=== PATIENT | female | born 1975 | race Caucasian/White ===

== ENCOUNTER 2023-11-14 14:12 | Inpatient (IN) | payer MEDICAID, OTHER ==
[~2023-11-14] VITALS: Ht 160 cm; Wt 52.2 kg
[2023-11-14 14:53] VITALS: BP 111/58; PULSE 109; RESP 20; TEMP 98.1; O2SAT 96
[2023-11-14 16:46] LABS: BASOPHILS % (AUTO) 0.4 % (0.0-2.0); EOSINOPHILS # (AUTO) 0.6 K/uL (0-0.4); EOSINOPHILS % (AUTO) 4.8 % (0.0-4.0); HEMOGLOBIN 12.1 g/dL (12.0-16.0); LYMPHOCYTES # (AUTO) 1.2 K/uL (2.5-16.5); LYMPHOCYTES % (AUTO) 9.5 % (20.5-51.1); MEAN CORPUSCULAR HEMOGLOBIN 28 pg (27-31); MEAN CORPUSCULAR HGB CONC 34 g/dL (33-37); MEAN CORPUSCULAR VOLUME 81.5 fL (80-94); MONOCYTES # (AUTO) 1.2 K/uL (0.8-1.0); MONOCYTES % (AUTO) 9.3 % (1.7-9.3); NEUTROPHILS # (AUTO) 9.8 K/uL (1.8-7.7); PLATELET COUNT (AUTO) 514 K/uL (140-450); RED BLOOD CELL COUNT(AUTO) 4.42 MIL/uL (4.20-5.40); WHITE BLOOD COUNT (AUTO) 12.9 K/uL (4.8-10.8)
[2023-11-14 17:06] LABS: ANION GAP 13.4 (8-16); CALCIUM 9.5 mg/dL (8.5-10.1); CARBON DIOXIDE 28.4 mmol/L (21-32); CREATININE 0.8 mg/dL (0.6-1.3); POTASSIUM 3.8 mmol/L (3.5-5.1)
[2023-11-14 17:52] LABS: LACTIC ACID 0.9 mmol/L (0.4-2.0)
[2023-11-14] MEDS: NACL 0.9% 2,000 ML IV ONE (18:48)
[2023-11-14] MEDS ORDERED: ONDANSETRON 4 MG/2 ML VIAL IVP PRN (19:00)
[2023-11-14] MEDS ORDERED: MORPHINE SULFATE 4 MG/ML SYR IVP PRN (19:00)
[2023-11-14] MEDS ORDERED: HYDROcodone/APAP 5/325 MG 1 TAB TAB PO PRN (19:00)
[2023-11-14] MEDS ORDERED: POTASSIUM CHLORIDE 10 MEQ TABER PO PRN (19:00)
[2023-11-14] MEDS ORDERED: KCL 20 MEQ IN 100 mL PREMIX 200 ML IV PRN (19:00)
[2023-11-14] MEDS ORDERED: MAG SULF 2000 MG/WATER PREMIX 50 ML IV PRN (19:00)
[2023-11-14] MEDS ORDERED: MAGNESIUM OXIDE 400 MG TAB PO PRN (19:00)
[2023-11-14] MEDS: ALBUTEROL SULFATE/IPRATROPIU 3 ML SOL IH SCH (19:46)
[2023-11-14 20:15] VITALS: PULSE 109; RESP 20; O2SAT 96
[2023-11-14] MEDS: IPRATROPIUM 0.02% 0.5 MG/2.5 ML NEBU INH ONE (20:17)
[2023-11-14] MEDS: ALBUTEROL 0.083% 2.5 MG/3 ML NEBU INH ONE (20:17)
[2023-11-14 20:45] VITALS: O2SAT 99
[2023-11-14 20:47] VITALS: PULSE 109; RESP 20; O2SAT 99
[2023-11-14 22:05] VITALS: PULSE 71; RESP 18; O2SAT 98
[2023-11-14] MEDS: AZITHROMYCIN 500 MG in DEXTROSE 5% 250 ML IV SCH (22:58)
[2023-11-14] MEDS: AZITHROMYCIN 500 MG INJ VIAL IV ONE (22:59)
[2023-11-15] VITALS (10 sets, daily range): BP systolic 89–112; BP diastolic 50–62; PULSE 70–121; RESP 16–20; TEMP 97.8–101.4; O2SAT 95–100
[2023-11-15] MEDS: ACETAMINOPHEN 325 MG TAB PO PRN (00:02)
[2023-11-15 07:07] LABS: BASOPHILS # (AUTO) 0.1 K/uL (0.00-0.22); BASOPHILS % (AUTO) 0.5 % (0.0-2.0); EOSINOPHILS # (AUTO) 0.9 K/uL (0-0.4); EOSINOPHILS % (AUTO) 8.1 % (0.0-4.0); HEMATOCRIT 29.9 % (36-48); HEMOGLOBIN 10.2 g/dL (12.0-16.0); LYMPHOCYTES # (AUTO) 1.6 K/uL (2.5-16.5); LYMPHOCYTES % (AUTO) 14.7 % (20.5-51.1); MEAN CORPUSCULAR HEMOGLOBIN 28 pg (27-31); MEAN CORPUSCULAR HGB CONC 34 g/dL (33-37); MEAN CORPUSCULAR VOLUME 81.3 fL (80-94); MONOCYTES # (AUTO) 1.1 K/uL (0.8-1.0); MONOCYTES % (AUTO) 10.1 % (1.7-9.3); NEUTROPHILS # (AUTO) 7.3 K/uL (1.8-7.7); NEUTROPHILS % (AUTO) 66.6 % (42.2-75.2); PLATELET COUNT (AUTO) 441 K/uL (140-450); RED BLOOD CELL COUNT(AUTO) 3.67 MIL/uL (4.20-5.40); RED CELL DISTRIBUTION WIDTH 14.9 % (11.6-13.7)
[2023-11-15 08:15] LABS: ALBUMIN 1.9 g/dL (3.4-5.0); ANION GAP 13.2 (8-16); CALCIUM 8.1 mg/dL (8.5-10.1); CARBON DIOXIDE 25.7 mmol/L (21-32); CREATININE 0.6 mg/dL (0.6-1.3); POTASSIUM 3.9 mmol/L (3.5-5.1); TOTAL BILIRUBIN 0.3 mg/dL (0.0-1.0); TOTAL PROTEIN, SERUM 6.4 g/dL (6.4-8.2)
[2023-11-15] MEDS: DOCUSATE SODIUM 100 MG GELCAP PO SCH (09:11)
[2023-11-16] VITALS (7 sets, daily range): BP systolic 98–109; BP diastolic 56–69; PULSE 58–118; RESP 16–21; TEMP 97.8–99.2; O2SAT 95–100
[2023-11-16 07:14] LABS: BASOPHILS % (AUTO) 0.3 % (0.0-2.0); EOSINOPHILS # (AUTO) 1.1 K/uL (0-0.4); EOSINOPHILS % (AUTO) 8.3 % (0.0-4.0); HEMATOCRIT 32.5 % (36-48); HEMOGLOBIN 10.8 g/dL (12.0-16.0); LYMPHOCYTES # (AUTO) 1.6 K/uL (2.5-16.5); LYMPHOCYTES % (AUTO) 12.4 % (20.5-51.1); MEAN CORPUSCULAR HEMOGLOBIN 27 pg (27-31); MEAN CORPUSCULAR HGB CONC 33 g/dL (33-37); MEAN CORPUSCULAR VOLUME 81.6 fL (80-94); MONOCYTES # (AUTO) 1.1 K/uL (0.8-1.0); MONOCYTES % (AUTO) 8.3 % (1.7-9.3); NEUTROPHILS # (AUTO) 9.1 K/uL (1.8-7.7); NEUTROPHILS % (AUTO) 70.7 % (42.2-75.2); PLATELET COUNT (AUTO) 485 K/uL (140-450); RED BLOOD CELL COUNT(AUTO) 3.99 MIL/uL (4.20-5.40); RED CELL DISTRIBUTION WIDTH 15.1 % (11.6-13.7); WHITE BLOOD COUNT (AUTO) 12.8 K/uL (4.8-10.8)
[2023-11-16 07:54] LABS: ALBUMIN 2.2 g/dL (3.4-5.0); ANION GAP 15.3 (8-16); CALCIUM 8.5 mg/dL (8.5-10.1); CARBON DIOXIDE 24.4 mmol/L (21-32); CREATININE 0.8 mg/dL (0.6-1.3); MAGNESIUM 2.2 mg/dL (1.8-2.4); POTASSIUM 3.7 mmol/L (3.5-5.1); TOTAL BILIRUBIN 0.3 mg/dL (0.0-1.0); TOTAL PROTEIN, SERUM 7.1 g/dL (6.4-8.2)
[2023-11-17 04:00] VITALS: BP 126/69; PULSE 80; RESP 19; TEMP 98.1; O2SAT 98
[2023-11-17 07:33] LABS: BASOPHILS # (AUTO) 0.1 K/uL (0.00-0.22); BASOPHILS % (AUTO) 0.5 % (0.0-2.0); EOSINOPHILS % (AUTO) 7.9 % (0.0-4.0); HEMATOCRIT 33.3 % (36-48); HEMOGLOBIN 11.3 g/dL (12.0-16.0); LYMPHOCYTES # (AUTO) 1.6 K/uL (2.5-16.5); LYMPHOCYTES % (AUTO) 12.8 % (20.5-51.1); MEAN CORPUSCULAR HEMOGLOBIN 28 pg (27-31); MEAN CORPUSCULAR HGB CONC 34 g/dL (33-37); MEAN CORPUSCULAR VOLUME 81.3 fL (80-94); MONOCYTES # (AUTO) 1.1 K/uL (0.8-1.0); MONOCYTES % (AUTO) 8.5 % (1.7-9.3); NEUTROPHILS # (AUTO) 8.8 K/uL (1.8-7.7); NEUTROPHILS % (AUTO) 70.3 % (42.2-75.2); PLATELET COUNT (AUTO) 547 K/uL (140-450); RED CELL DISTRIBUTION WIDTH 14.9 % (11.6-13.7); WHITE BLOOD COUNT (AUTO) 12.6 K/uL (4.8-10.8)
[2023-11-17 08:00] VITALS: PULSE 80; RESP 18; TEMP 98.2; O2SAT 98; O2SAT 99
[2023-11-17 08:07] LABS: ALBUMIN 2.2 g/dL (3.4-5.0); ANION GAP 14.2 (8-16); CARBON DIOXIDE 25.7 mmol/L (21-32); CREATININE 0.6 mg/dL (0.6-1.3); MAGNESIUM 2.2 mg/dL (1.8-2.4); POTASSIUM 3.9 mmol/L (3.5-5.1); TOTAL BILIRUBIN 0.3 mg/dL (0.0-1.0); TOTAL PROTEIN, SERUM 7.6 g/dL (6.4-8.2)
[2023-11-17 16:00] VITALS: BP 94/59; PULSE 100; RESP 18; TEMP 98.2; O2SAT 100
[2023-11-17 20:00] VITALS: BP 111/64; PULSE 113; RESP 19; TEMP 97.6; O2SAT 96
[2023-11-18] VITALS (7 sets, daily range): BP systolic 100–108; BP diastolic 63–64; PULSE 77–99; RESP 16–18; TEMP 98.2–98.4; O2SAT 94–99
[2023-11-18 07:32] LABS: HEMATOCRIT 34.1 % (36-48); HEMOGLOBIN 11.6 g/dL (12.0-16.0); MEAN CORPUSCULAR HEMOGLOBIN 28 pg (27-31); MEAN CORPUSCULAR HGB CONC 34 g/dL (33-37); MEAN CORPUSCULAR VOLUME 81.6 fL (80-94); PLATELET COUNT (AUTO) 546 K/uL (140-450); RED BLOOD CELL COUNT(AUTO) 4.18 MIL/uL (4.20-5.40); RED CELL DISTRIBUTION WIDTH 14.8 % (11.6-13.7); WHITE BLOOD COUNT (AUTO) 15.3 K/uL (4.8-10.8)
[2023-11-18 07:38] LABS: ALBUMIN 2.3 g/dL (3.4-5.0); ANION GAP 13.7 (8-16); CALCIUM 9.1 mg/dL (8.5-10.1); CARBON DIOXIDE 26.5 mmol/L (21-32); CREATININE 0.7 mg/dL (0.6-1.3); MAGNESIUM 2.2 mg/dL (1.8-2.4); POTASSIUM 4.2 mmol/L (3.5-5.1); TOTAL BILIRUBIN 0.3 mg/dL (0.0-1.0); TOTAL PROTEIN, SERUM 7.8 g/dL (6.4-8.2)
[2023-11-18 09:14] LABS: BASOPHILS % (MANUAL) 0 % (0-2); EOSINOPHILS % (MANUAL) 5 % (0-4); LYMPHOCYTES % (MANUAL) 13 % (20-46); METAMYELOCYTES % 11 % (0-0); MONOCYTES % (MANUAL) 8 % (5-12); MYELOCYTES % 1 % (0-0)
[2023-11-18 09:15] LABS: PLATELET ESTIMATE GIANT PLATELET SEEN
[2023-11-19] VITALS: BP 109/68; PULSE 84; RESP 18; TEMP 98.6; O2SAT 99
[2023-11-19 06:43] LABS: HEMATOCRIT 33.1 % (36-48); HEMOGLOBIN 11.2 g/dL (12.0-16.0); MEAN CORPUSCULAR HEMOGLOBIN 28 pg (27-31); MEAN CORPUSCULAR HGB CONC 34 g/dL (33-37); MEAN CORPUSCULAR VOLUME 81.5 fL (80-94); PLATELET COUNT (AUTO) 540 K/uL (140-450); RED BLOOD CELL COUNT(AUTO) 4.06 MIL/uL (4.20-5.40); RED CELL DISTRIBUTION WIDTH 14.8 % (11.6-13.7); WHITE BLOOD COUNT (AUTO) 15.4 K/uL (4.8-10.8)
[2023-11-19 07:17] LABS: ALBUMIN 2.3 g/dL (3.4-5.0); ANION GAP 16.3 (8-16); CARBON DIOXIDE 25.8 mmol/L (21-32); CREATININE 0.7 mg/dL (0.6-1.3); POTASSIUM 4.1 mmol/L (3.5-5.1); TOTAL BILIRUBIN 0.3 mg/dL (0.0-1.0); TOTAL PROTEIN, SERUM 7.6 g/dL (6.4-8.2)
[2023-11-19 07:53] LABS: MAGNESIUM 2.2 mg/dL (1.8-2.4)
[2023-11-19 08:00] VITALS: BP 105/67; PULSE 91; RESP 18; TEMP 97.8; O2SAT 98
[2023-11-19] MEDS: rifAMPin 300 MG CAP PO SCH (09:00)
[2023-11-19] MEDS: ISONIAZID 100 MG TAB PO SCH (09:40)
[2023-11-19] MEDS: PYRIDOXINE 50 MG TAB PO SCH (09:41)
[2023-11-19] MEDS: ISONIAZID 100 MG TAB ONE (09:56)
[2023-11-19] MEDS: PYRIDOXINE 50 MG TAB ONE (09:56)
[2023-11-19 11:28] LABS: BASOPHILS % (MANUAL) 0 % (0-2); EOSINOPHILS % (MANUAL) 3 % (0-4); LYMPHOCYTES % (MANUAL) 9 % (20-46); METAMYELOCYTES % 8 % (0-0); MONOCYTES % (MANUAL) 7 % (5-12); MYELOCYTES % 2 % (0-0)
[2023-11-19 11:29] LABS: PLATELET ESTIMATE ADEQUATE
[2023-11-19 16:00] VITALS: BP 109/56; PULSE 95; RESP 19; TEMP 98; O2SAT 95
[2023-11-19] MEDS: ETHAMBUTOL 400 MG TAB PO SCH (18:02)
[2023-11-19] MEDS: PYRAZINAMIDE 500 MG TAB PO SCH (18:03)
[2023-11-19 20:00] VITALS: PULSE 91; RESP 18; TEMP 97.8; O2SAT 98
[2023-11-19 21:00] VITALS: O2SAT 95
[2023-11-20] VITALS: BP 106/61; PULSE 87; RESP 19; TEMP 98.6; O2SAT 95
[2023-11-20 07:53] VITALS: RESP 20; TEMP 98.1; O2SAT 99
[2023-11-20 07:54] VITALS: PULSE 89; RESP 20; O2SAT 99
[2023-11-20 08:00] VITALS: BP 105/63; PULSE 129; RESP 19; TEMP 98.2; O2SAT 95
[2023-11-20] MEDS: ISONIAZID 100 MG TAB ONE ×2 (10:37)
[2023-11-20] MEDS: PYRIDOXINE 50 MG TAB ONE ×3 (10:40→11:28)
[2023-11-20 16:00] VITALS: BP 116/67; PULSE 118; RESP 19; TEMP 96.9; O2SAT 95
[2023-11-20 20:00] VITALS: RESP 17; TEMP 99.7; O2SAT 99
[2023-11-21 08:00] VITALS: BP_SYST 117; BP_SYST 99; BP_DIAS 58; BP_DIAS 60; PULSE 110; PULSE 118; PULSE 91; RESP 17; RESP 18; RESP 19; TEMP 97.3; TEMP 97.8; O2SAT 96; O2SAT 99
[2023-11-21 08:05] VITALS: O2SAT 99
[2023-11-21 16:00] VITALS: BP 121/69; PULSE 107; RESP 18; TEMP 97.6; O2SAT 98
[2023-11-21 19:53] VITALS: PULSE 106; RESP 18; O2SAT 95
[2023-11-21 20:00] VITALS: BP 100/67; PULSE 105; RESP 16; RESP 18; TEMP 98.2; O2SAT 96
[2023-11-22 04:26] VITALS: BP 101/66; PULSE 101; RESP 18; TEMP 98.1; O2SAT 97
[2023-11-22 06:08] LABS: HEPATITIS A ANTIBODY IGM Negative (Negative); HEPATITIS B CORE AB TOTAL Negative (Negative); HEPATITIS B CORE, IGM Negative (Negative); HEPATITIS B SURFACE ANTIBODY Non Reactive (.); HEPATITIS B SURFACE ANTIGEN Negative (Negative); HEPATITIS C VIRUS ANTIBODY Non Reactive (Non Reactive)
[2023-11-22 07:48] VITALS: O2SAT 93
[2023-11-22 08:00] VITALS: BP 98/58; PULSE 100; RESP 16; RESP 18; TEMP 97.5; TEMP 98.2; O2SAT 100; O2SAT 96
[2023-11-22 09:54] LABS: HEPATITIS A ANTIBODY TOTAL Positive (Negative)
[2023-11-22 14:11] VITALS: O2SAT 94
[2023-11-22 19:48] VITALS: PULSE 116; RESP 16; O2SAT 95
[2023-11-22 20:00] VITALS: BP 108/56; PULSE 98; RESP 17; TEMP 98; O2SAT 97
[2023-11-23 04:00] VITALS: BP 101/47; PULSE 92; RESP 16; TEMP 97.8; O2SAT 96
[2023-11-23 08:00] VITALS: RESP 18; TEMP 97; O2SAT 98
[2023-11-23 12:00] VITALS: BP 101/47; PULSE 92; RESP 18; TEMP 206.6; O2SAT 98
[2023-11-23 20:00] VITALS: BP 100/61; PULSE 72; PULSE 97; RESP 18; TEMP 99.4; O2SAT 97
[2023-11-23 20:41] VITALS: O2SAT 95
[2023-11-24 04:00] VITALS: BP 105/67; PULSE 110; RESP 18; TEMP 98.5; O2SAT 98
[2023-11-24 07:40] LABS: ALBUMIN 2.3 g/dL (3.4-5.0); ANION GAP 9.6 (8-16); CALCIUM 9.1 mg/dL (8.5-10.1); CARBON DIOXIDE 26.4 mmol/L (21-32); CREATININE 0.7 mg/dL (0.6-1.3); TOTAL BILIRUBIN 0.7 mg/dL (0.0-1.0); TOTAL PROTEIN, SERUM 7.5 g/dL (6.4-8.2)
[2023-11-24 08:00] VITALS: PULSE 74; RESP 18; TEMP 98.7; O2SAT 97
[2023-11-24 08:34] VITALS: O2SAT 94
[2023-11-24 16:00] VITALS: BP 109/65; PULSE 105; RESP 18; TEMP 97.5; O2SAT 95
[2023-11-24] MEDS ORDERED: ALBUTEROL SULFATE/IPRATROPIU 3 ML SOL IH PRN (17:55)
[2023-11-24 19:32] VITALS: PULSE 100; RESP 18; O2SAT 96
[2023-11-24 20:00] VITALS: BP 106/67; PULSE 89; RESP 17; RESP 18; TEMP 98.1; O2SAT 97
[2023-11-25 04:00] VITALS: BP 103/71; PULSE 113; RESP 17; TEMP 98.2; O2SAT 98
[2023-11-25 08:00] VITALS: BP 109/68; PULSE 110; RESP 18; TEMP 98.2; TEMP 98.3; O2SAT 95; O2SAT 98
[2023-11-25 08:04] VITALS: O2SAT 93
[2023-11-25 20:00] VITALS: BP 125/74; PULSE 112; RESP 18; TEMP 96.8; O2SAT 94; O2SAT 95
[2023-11-25 20:31] VITALS: O2SAT 96
[2023-11-25] MEDS: rifAMPin 300 MG CAP PO SCH (21:50)
[2023-11-26 04:00] VITALS: BP 104/70; PULSE 99; RESP 20; TEMP 97.8; O2SAT 94
[2023-11-26 07:38] VITALS: O2SAT 96
[2023-11-26 08:00] VITALS: BP 118/66; PULSE 143; RESP 18; TEMP 97.8; O2SAT 94
[2023-11-26] MEDS: PYRAZINAMIDE 500 MG TAB PO SCH (09:23)
[2023-11-26] MEDS: ETHAMBUTOL 400 MG TAB PO SCH (09:24)
[2023-11-26] MEDS: ISONIAZID 100 MG TAB PO SCH (09:26)
[2023-11-26 16:00] VITALS: BP 114/70; PULSE 123; RESP 18; TEMP 97; O2SAT 96
[2023-11-26 19:26] VITALS: O2SAT 95
[2023-11-26 20:00] VITALS: BP 112/70; PULSE 132; RESP 18; RESP 19; TEMP 98; O2SAT 94; O2SAT 97
[2023-11-27] VITALS (8 sets, daily range): BP systolic 98–106; BP diastolic 50–69; PULSE 115–119; RESP 18–20; TEMP 97.3–98.8; O2SAT 94–97
[2023-11-27 11:49] LABS: HEMATOCRIT 35.4 % (36-48); HEMOGLOBIN 12.1 g/dL (12.0-16.0); MEAN CORPUSCULAR HEMOGLOBIN 28 pg (27-31); MEAN CORPUSCULAR HGB CONC 34 g/dL (33-37); MEAN CORPUSCULAR VOLUME 82.3 fL (80-94); PLATELET COUNT (AUTO) 603 K/uL (140-450); WHITE BLOOD COUNT (AUTO) 20.1 K/uL (4.8-10.8)
[2023-11-27 12:01] LABS: ALBUMIN 2.4 g/dL (3.4-5.0); ANION GAP 17.1 (8-16); CALCIUM 9.4 mg/dL (8.5-10.1); CARBON DIOXIDE 25.1 mmol/L (21-32); CREATININE 0.9 mg/dL (0.6-1.3); MAGNESIUM 2.2 mg/dL (1.8-2.4); POTASSIUM 4.2 mmol/L (3.5-5.1); TOTAL BILIRUBIN 0.6 mg/dL (0.0-1.0); TOTAL PROTEIN, SERUM 8.2 g/dL (6.4-8.2)
[2023-11-27 12:14] LABS: LYMPHOCYTES % (MANUAL) 5 % (20-46); MONOCYTES % (MANUAL) 7 % (5-12)
[2023-11-27 12:15] LABS: EOSINOPHILS % (MANUAL) 2 % (0-4)
[2023-11-27 12:16] LABS: METAMYELOCYTES % 1 % (0-0); MYELOCYTES % 1 % (0-0)
[2023-11-28 04:00] VITALS: BP 97/61; PULSE 116; RESP 19; TEMP 97.2; O2SAT 97
[2023-11-28 08:00] VITALS: BP 108/57; PULSE 113; RESP 18; TEMP 97.6; O2SAT 94
[2023-11-28 16:00] VITALS: BP 125/61; PULSE 118; RESP 18; TEMP 97.4; O2SAT 97
[2023-11-28 20:00] VITALS: PULSE 115; RESP 18; TEMP 97.9; O2SAT 95
[2023-11-29 04:00] VITALS: BP 111/48; PULSE 111; RESP 18; TEMP 97.6; O2SAT 95
[2023-11-29 08:00] VITALS: BP 101/55; PULSE 115; RESP 19; TEMP 98.2; O2SAT 95
[2023-11-29 08:41] VITALS: O2SAT 94
[2023-11-29 15:55] LABS: ALBUMIN 2.6 g/dL (3.4-5.0); BILIRUBIN,DIRECT 0.3 mg/dL (0.0-0.3); TOTAL BILIRUBIN 0.6 mg/dL (0.0-1.0); TOTAL PROTEIN, SERUM 7.9 g/dL (6.4-8.2)
[2023-11-29 20:00] VITALS: BP 103/65; PULSE 50; RESP 18; TEMP 97.7; O2SAT 94
[2023-11-29 20:26] VITALS: O2SAT 93
[2023-11-30 04:00] VITALS: BP 102/63; PULSE 110; RESP 18; TEMP 97.1; O2SAT 93
[2023-11-30 07:52] VITALS: O2SAT 93
[2023-11-30 08:00] VITALS: PULSE 65; RESP 18; TEMP 97.8; O2SAT 98
[2023-11-30 12:00] VITALS: BP 103/65; PULSE 50; RESP 18; TEMP 97.7; O2SAT 94
[2023-11-30 20:00] VITALS: BP 107/64; PULSE 112; RESP 18; TEMP 97.4; O2SAT 69; O2SAT 96
[2023-11-30 21:44] VITALS: PULSE 120; RESP 16; O2SAT 95
[2023-12-01 04:00] VITALS: BP 96/66; PULSE 110; RESP 16; TEMP 97.8; O2SAT 96
[2023-12-01 08:00] VITALS: PULSE 110; RESP 18; TEMP 98; O2SAT 95
[2023-12-01 08:12] VITALS: O2SAT 93
[2023-12-01 12:13] VITALS: BP 99/68; PULSE 110; RESP 18; TEMP 98; O2SAT 95
[2023-12-01 20:00] VITALS: BP 118/73; PULSE 114; RESP 18; TEMP 97.8; O2SAT 95; O2SAT 96
[2023-12-01 20:11] VITALS: O2SAT 96
[2023-12-02 04:00] VITALS: BP 115/72; PULSE 111; RESP 18; TEMP 98; O2SAT 96
[2023-12-02 08:00] VITALS: PULSE 115; RESP 18; TEMP 97.8; O2SAT 97
[2023-12-02 12:00] VITALS: BP 102/57; PULSE 115; RESP 18; TEMP 97.8; O2SAT 97
[2023-12-02 16:14] LABS: HEMATOCRIT 36.2 % (36-48); HEMOGLOBIN 12.3 g/dL (12.0-16.0); MEAN CORPUSCULAR HEMOGLOBIN 28 pg (27-31); MEAN CORPUSCULAR HGB CONC 34 g/dL (33-37); MEAN CORPUSCULAR VOLUME 83.1 fL (80-94); PLATELET COUNT (AUTO) 467 K/uL (140-450); RED BLOOD CELL COUNT(AUTO) 4.36 MIL/uL (4.20-5.40); RED CELL DISTRIBUTION WIDTH 16.8 % (11.6-13.7); WHITE BLOOD COUNT (AUTO) 10.2 K/uL (4.8-10.8)
[2023-12-02 16:27] LABS: ALBUMIN 2.3 g/dL (3.4-5.0); ANION GAP 10.4 (8-16); CALCIUM 8.7 mg/dL (8.5-10.1); CARBON DIOXIDE 30.7 mmol/L (21-32); CREATININE 0.8 mg/dL (0.6-1.3); POTASSIUM 4.1 mmol/L (3.5-5.1); TOTAL BILIRUBIN 0.5 mg/dL (0.0-1.0); TOTAL PROTEIN, SERUM 7.5 g/dL (6.4-8.2)
[2023-12-02 18:34] LABS: BASOPHILS % (MANUAL) 1 % (0-2); BLASTS, MANUAL % 0 % (0-0); EOSINOPHILS % (MANUAL) 7 % (0-4); LYMPHOCYTES % (MANUAL) 8 % (20-46); METAMYELOCYTES % 0 % (0-0); MONOCYTES % (MANUAL) 9 % (5-12); MYELOCYTES % 0 % (0-0); OTHER CELLS,MANUAL % 0 (0-0); PROMYELOCYTES % 0 % (0-0)
[2023-12-02 18:35] LABS: PLATELET ESTIMATE SLIGHTLY INCREASED
[2023-12-02 20:00] VITALS: BP 118/73; PULSE 115; RESP 18; TEMP 97.4; O2SAT 94
[2023-12-03 00:27] VITALS: O2SAT 96
[2023-12-03 04:00] VITALS: BP 104/72; PULSE 103; RESP 18; TEMP 97.8; O2SAT 94
[2023-12-03 08:00] VITALS: PULSE 114; RESP 18; RESP 20; TEMP 98.9; O2SAT 97
[2023-12-03 19:15] VITALS: PULSE 117; RESP 17; O2SAT 97
[2023-12-03 20:00] VITALS: BP 99/77; PULSE 116; RESP 18; TEMP 97.4; O2SAT 96
[2023-12-03 22:48] VITALS: O2SAT 96
[2023-12-04 04:00] VITALS: BP 101/71; PULSE 97; RESP 18; TEMP 97.9; O2SAT 96
[2023-12-04 08:00] VITALS: PULSE 102; RESP 18; TEMP 96; O2SAT 94
[2023-12-04 08:33] VITALS: O2SAT 96
[2023-12-04] MEDS ORDERED: PYRI50TA33 PO (14:55)
[2023-12-04] MEDS ORDERED: MYA400 PO (14:55)
[2023-12-04] MEDS ORDERED: RIFA300C84 PO (14:55)
[2023-12-04] MEDS ORDERED: ISO100 PO (14:55)
[2023-12-04] MEDS ORDERED: [UNRECOGNIZED DRUG - CODE] PO (14:55)
[2023-12-04] MEDS ORDERED: HYDRAGUARD CREAM TP SCH (18:25)
[2023-12-04] MEDS: HYDRAGUARD CREAM TP ONE (19:00)
[2023-12-04 20:00] VITALS: BP 102/70; PULSE 102; PULSE 98; RESP 18; RESP 19; TEMP 96; TEMP 97.5; O2SAT 94; O2SAT 96
[2023-12-04] MEDS: rifAMPin 300 MG CAP PO ONE (22:17)
[2023-12-05] VITALS (8 sets, daily range): BP systolic 100–112; BP diastolic 59–67; PULSE 98–118; RESP 18–19; TEMP 97.1–98.7; O2SAT 95–99
[2023-12-05] MEDS: rifAMPin 300 MG CAP PO SCH (08:56)
[2023-12-05] MEDS: ISONIAZID 100 MG TAB PO SCH (08:56)
[2023-12-05] MEDS: ETHAMBUTOL 400 MG TAB PO SCH (08:57)
[2023-12-05] MEDS: PYRAZINAMIDE 500 MG TAB PO SCH (08:57)
[2023-12-06 04:00] VITALS: BP 105/65; PULSE 112; RESP 18; TEMP 98.2; O2SAT 100
[2023-12-06 08:00] VITALS: PULSE 100; RESP 17; RESP 18; O2SAT 98
[2023-12-06 09:26] VITALS: PULSE 100; RESP 18; O2SAT 97
[2023-12-06 19:47] LABS: BASOPHILS % (AUTO) 0.2 % (0.0-2.0); EOSINOPHILS # (AUTO) 0.8 K/uL (0-0.4); EOSINOPHILS % (AUTO) 9.7 % (0.0-4.0); HEMATOCRIT 35.1 % (36-48); HEMOGLOBIN 11.9 g/dL (12.0-16.0); LYMPHOCYTES # (AUTO) 0.7 K/uL (2.5-16.5); LYMPHOCYTES % (AUTO) 8.5 % (20.5-51.1); MEAN CORPUSCULAR HEMOGLOBIN 29 pg (27-31); MEAN CORPUSCULAR HGB CONC 34 g/dL (33-37); MEAN CORPUSCULAR VOLUME 84.4 fL (80-94); MONOCYTES # (AUTO) 0.7 K/uL (0.8-1.0); MONOCYTES % (AUTO) 9.1 % (1.7-9.3); NEUTROPHILS # (AUTO) 5.8 K/uL (1.8-7.7); NEUTROPHILS % (AUTO) 72.5 % (42.2-75.2); PLATELET COUNT (AUTO) 370 K/uL (140-450); RED BLOOD CELL COUNT(AUTO) 4.16 MIL/uL (4.20-5.40); RED CELL DISTRIBUTION WIDTH 18.1 % (11.6-13.7); WHITE BLOOD COUNT (AUTO) 7.9 K/uL (4.8-10.8)
[2023-12-06 19:59] LABS: ALBUMIN 2.3 g/dL (3.4-5.0); ANION GAP 11.5 (8-16); CALCIUM 8.6 mg/dL (8.5-10.1); CARBON DIOXIDE 29.5 mmol/L (21-32); CREATININE 0.9 mg/dL (0.6-1.3); TOTAL BILIRUBIN 0.4 mg/dL (0.0-1.0); TOTAL PROTEIN, SERUM 7.2 g/dL (6.4-8.2)
[2023-12-06 20:00] VITALS: PULSE 95; PULSE 98; RESP 18; RESP 20; TEMP 98.3; O2SAT 97
[2023-12-06 20:07] VITALS: RESP 18; O2SAT 97
[2023-12-07 04:00] VITALS: BP 100/66; PULSE 98; RESP 18; TEMP 98.2; O2SAT 97
[2023-12-07 07:17] LABS: ALBUMIN 2.4 g/dL (3.4-5.0); BILIRUBIN,DIRECT 0.3 mg/dL (0.0-0.3); TOTAL BILIRUBIN 0.5 mg/dL (0.0-1.0); TOTAL PROTEIN, SERUM 7.3 g/dL (6.4-8.2)
[2023-12-07 08:00] VITALS: PULSE 100; RESP 18; O2SAT 99
[2023-12-07 08:29] VITALS: O2SAT 97
[2023-12-07 12:00] VITALS: BP 105/76; PULSE 97; RESP 18; TEMP 98.4; O2SAT 98
[2023-12-07 16:48] VITALS: BP 115/73; PULSE 97; RESP 20; TEMP 97.1
== END 2023-12-07 17:35 | disposition home or self-care (01) | DRG 137 ==
LOC: MED 14:12 → MTU 20:27 → OBSVTOIN 20:27 → MTU 21:12
PROVIDERS: ADMIT Internal Medicine; ATTEND Internal Medicine
DX: A15.0 Tuberculosis of lung (principal); E43 Unspecified severe protein-calorie malnutrition; Z20.822 Contact with and (suspected) exposure to COVID-19; J15.9 Unspecified bacterial pneumonia; Z68.20 Body mass index [BMI] 20.0-20.9, adult
CPT/HCPCS: 36415; 71045; 80048; 80053; 80076; 83605; 83735; 85025; 86704; 86706; 86708; 86709; 86803; 87040; 87070; 87081; 87116; 87190; 87205; 87206; 87340; 94640; J0456; J0696; J1644; J7060; J7613; J7644; Q0092